=== PATIENT | male | born 1950 | race Caucasian/White ===

== ENCOUNTER 2018-06-17 10:06 | Day surgery (SDC) | payer MEDICARE ==
[~2018-06-17 10:06] MED LIST: Ak-Dilate OPHTHALMIC*** 1.065 ML, Cyclogyl 1% OPHTH SOL 5 ML 1.065 ML, GATIFLOXACIN 0.5... OP ONE; Lactated Ringers 1,000 ML IV ONE; Lactated Ringers 1,000 ML IV SCH; TETRACAINE 0.5% STERI-UNIT SOL OP ONE
[2018-06-17] MEDS ORDERED: Versed 2 MG/2 ML Injection IV ONE (10:07)
[2018-06-17] MEDS ORDERED: DIPRIVAN 200 MG/20 ML IV ONE (10:07)
[2018-06-17] MEDS ORDERED: BSS 500 ML, Fortaz/Tazicef 1 GM** 0.2 G IO ONE ×2 (12:00)
[2018-06-17] MEDS ORDERED: ACETAZOLAMIDE 250 MG TABLET PO ONE (12:00)
[2018-06-17] MEDS ORDERED: BETADINE 5% OPHTHALMIC 30 ML OP ONE (12:00)
[2018-06-17] MEDS ORDERED: Zofran 4 MG/2 ML VIAL IV PRN (12:00)
[2018-06-17] MEDS ORDERED: Epinephrine Preservative Free 1 MG/ML INTRAOP ONE (12:00)
[2018-06-17] MEDS ORDERED: LIDOCAINE HCL 1% AMPUL 5 ML IJ ONE (12:00)
[2018-06-17 12:31] VITALS: BP 127/86; PULSE 67; O2SAT 97
--- NOTE | 2018-06-17 14:41 | OP ---
DATE/TIME OF OPERATION: 06/17/2018 1119 TIME DICTATED: 1208 PREOPERATIVE DIAGNOSIS: Senile cataract of left eye. POSTOPERATIVE DIAGNOSIS: Senile cataract of left eye. SURGEON: Agusto Jackson MD FAMILY SERVICE CASEWORKER: None. OPERATION: Cataract extraction of left eye with an intraocular lens implant. STANDARD __X___ COMPLEX ANESTHESIA: MAC. ___X___ Monitored anesthesia care in combination with topical and intra-cameral anesthesia (because of the established specific risk of reflux, arrhythmias, or an anxiety attack associated with ocular manipulation as well as difficulty of the philosophy and religion instructor to manage such potentially catastrophic events while simultaneously attempting to complete the surgical procedure, it was deemed necessary for the patient's safety to have an anesthesiologist or a nurse auto apprentice mechanic present during the procedure whenever possible. The anesthesiologist or the nurse auto apprentice mechanic was utilized to monitor and regulate the intravenous sedation of the patient, so the patient was cooperative, relaxed, and comfortable). Topical anesthesia using Tetracaine eye drops together with intra cameral anesthesia using Lidocaine 1% MPF. The nurse was utilized to monitor the patient. ANESTHESIA PROVIDER: Alli Min CRNA. COMPLICATIONS: None. BLOOD LOSS: None. INDICATIONS: The patient is undergoing cataract surgery in the hopes of eliminating the visual complaints and difficulty. PROCEDURE: After arriving at the facility's outpatient surgery area, an IV was started; the patient was given 5 mg of p.o. Versed. (If an anesthesia provider was not monitoring the patient) The patient was then given topical anesthetic Tetracaine eye drops. A cotton pellet was soaked into a solution of a combination of Zymaxid 0.5%, Celio-Synephrine 2.5% and Ocufen (other drops might have been substituted referenced in the patient's record). The pellet was inserted by the RN into the lower conjunctival cul-de-sac with a sterile forceps and left for 20 minutes. The pellet was then removed by the RN with a sterile forceps before taking the patient to the operating room. The preoperative area nurse identified the patient and marked the correct eye to be operated on. I identified the correct eye to be operated on and marked it appropriately in the outpatient surgery area. The patient was then taken into the operating room. Tetracaine eye drops were installed again in the correct eye. The eyelids and the lashes and the lid margins were scrubbed with Betadine solution. One drop of the diluted Betadine solution was placed in the conjunctival cul-de-sac for 45 seconds and then was irrigated. A drop of Tetracaine Gel was placed in the conjunctival cul-de-sac. The patient's forehead was taped to secure it during the procedure. The patient was monitored. The patient was then draped in the usual way for this procedure. An eye speculum was used to separate the eyelids. The eye was then fixated and a temporal 2.5 mm incision was made in the clear cornea temporally at the limbus. Through the incision, 0.25 cc of 1% non-preserved lidocaine was injected into the anterior chamber for intracameral anesthesia. The anterior chamber was then filled with viscoelastic. The pupil was small. I felt that it would be safer to mechanically dilate the pupil. A Malyugin ring was used at this point which dilated the pupil. That was removed at the end of the procedure prior to aspiration of the viscoelastic from the anterior chamber and posterior to the intraocular lens implant. The cataract had a great amount of cortical changes. That rendered seeing the anterior capsule difficult for a safe performance of an anterior capsulotomy. I injected an air bubble into the anterior chamber. I then injected 1 ML of vision blue solution into the anterior chamber. The vision blue solution was irrigated from the anterior chamber after 30 seconds. The anterior capsule was stained which facilitated performing the anterior capsulotomy safely. After that was completed, a cystotome was introduced into the anterior chamber and a round anterior capsulotomy was performed. The capsule was removed by a forceps. Hydrodissection was next carried utilizing a 25-gauge cannula and balanced salt solution to delineate the cortical material from the capsule and the nucleus from the cortical material. The nucleus was rotated freely into the capsular bag with no difficulty. The phaco tip of the [facility] Phacoemulsifier was introduced into the anterior chamber and two grooves were made into the nucleus 90 degrees apart. Using two spatulas resulted into the nucleus being fractured into four quadrants. The phaco tip was then used to remove each quadrant of the nucleus. Viscoelastic was used during this process to protect the corneal endothelium. Once the entire nucleus was removed, the phaco tip then was removed and the irrigation tip was introduced into the eye and the cortex was removed. The posterior capsule was polished. It was noticed that there was a tear into the posterior capsule with few vitreous strands into the pupil plan. An anterior vitrectomy was performed. A 24.00 diopter, [id number], posterior chamber lens implant, was inspected and found to be grossly normal. The implant was inserted into the implant injector cartridge; Viscoelastic again was introduced into the anterior chamber, which filled the capsular bag. The implant injector's cartridge tip was placed at the limbal wound and the posterior chamber implant was released into the capsular bag and rotated appropriately. The implant was found to be into the capsular bag and it was centered. 0.2 ml of Tri-Moxi was introduced via 27 gauge cannula into the vitreous cavity through the ciliary processes. Viscoelastic was aspirated from the anterior chamber and posterior to the intraocular lens implant from the capsular bag using the irrigating tip. The anterior chamber was irrigated and filled with 5 cc antibiotic solution (500 cc of BSS plus 2 ml of Fortaz 100 mg/ml) ( if patient was not allergic to the medication). The lips of the corneal incision were hydrated using BSS solution. The anterior chamber was checked and found to be water tight. ___X__ One drop each of antibiotic, steroid and NSAID drops (refer to chart for drops used) were placed in the conjunctival cul-de-sac of the operated eye. Patient tolerated the procedure quite well and left the operating room in satisfactory condition. DISCHARGE SUMMARY: The patient was released in stable condition. The patient and those with the patient were given an instruction sheet as of how to care for the eye after surgery as well as counseling on any abnormal laboratory studies by the postoperative RN. The patient was also given an appointment card for follow-up in the office and is to call immediately for any difficulties including but not limited to pain in the eye, decreased vision, discharge from the eye, headache and or fever. DISCHARGE DIAGNOSIS: Pseudophakia of left eye.
== END 2018-06-17 12:43 | disposition home or self-care (01) ==
LOC: SDC 10:06
PROVIDERS: ATTEND Ophthalmology
DX: H25.9 Unspecified age-related cataract (principal)
CPT/HCPCS: 94250; C1780; J0171; J2250; J2704; A9270-GY

== ENCOUNTER 2023-06-12 10:48 | Observation (INO) | payer MEDICARE, OTHER ==
--- NOTE | 2023-06-12 10:51 | ERPHSYRPT ---
- History of Present Illness Time Seen by Provider: 06/12/23 10:51 Source: patient Exam Limitations: no limitations Physician History: This is a 73-year-old white [place] who was diagnosed with COVID 6 days ago and in the last few days his symptoms of shortness of breath and cough have been worsening. Patient also complains of a headache and body aches. His cough is dry and nonproductive. On arrival to the emergency department, his room air oxygen saturation level is 77%. He was immediately placed on a nonrebreather mask and respiratory therapy was immediately consulted and provided the patient with a nebulizer treatment. The combined therapy increased his oxygen saturation level to 96% and he was symptomatically improved per his report. Patient has no abdominal pain. He has not had any vomiting or diarrhea symptoms. He does have a history of COPD. He has never been diagnosed with coronary artery disease Timing/Duration: day(s), worse (Worsening symptoms over the last few days) Severity of Dyspnea-Max: moderate Severity of Dyspnea-Current: moderate Possible Cause: no prior episodes Modifying Factors: Improves With: albuterol nebulizer (Approved proved symptoms), coughing, oxygen, rest Associated Symptoms: cough, No chest pain/discomfort Allergies/Adverse Reactions: No Known Drug Allergies Allergy (Verified 06/12/23 11:02) Home Medications: Albuterol 2.5 mg/3 ml Neb [Proventil 2.5 mg/3 ml Neb] 1 neb IH BID 06/12/23 [History] Tamsulosin HCl 0.4 mg [Flomax 0.4 MG] 0.4 mg PO HS 06/12/23 [History] Travel Risk - International Travel Have you traveled outside of the country in past 3 weeks: No - Coronavirus Screening Are you exhibiting any of the following symptoms?: Yes Symptoms: Cough: New Onset, Shortness of Breath, Headaches/Body Aches/Fatigue Close contact with a COVID-19 positive Pt in past 14-21 Days: No - Review of Systems Constitutional: No Symptoms Eyes: No Symptoms Ears, Nose, & Throat: No Symptoms Respiratory: Cough, Dyspnea Cardiac: No Symptoms Abdominal/Gastrointestinal: No Symptoms Genitourinary Symptoms: No Symptoms Musculoskeletal: Arthralgias, Myalgias Neurological: No Symptoms Psychological: No Symptoms Endocrine: No Symptoms Hematologic/Lymphatic: No Symptoms Immunological/Allergic: No Symptoms All Other Systems: Reviewed and Negative - Past Medical History Pertinent Past Medical History: No Neurological History: No Pertinent History ENT History: Cataracts Cardiac History: No Pertinent History Respiratory History: No Pertinent History Endocrine Medical History: No Pertinent History Musculoskeletal History: No Pertinent History GI Medical History: No Pertinent History History: No Pertinent History Psycho-Social History: No Pertinent History Male Reproductive Disorders: No Pertinent History - Past Surgical History Past Surgical History: Yes Neuro Surgical History: No Pertinent History Cardiac: No Pertinent History Respiratory: No Pertinent History Gastrointestinal: Hernia Repair Genitourinary: No Pertinent History Musculoskeletal: No Pertinent History Male Surgical History: No Pertinent History - Social History Smoking Status: Never smoker Exposure to second hand smoke: No Drug Use: none - Nursing Vital Signs Nursing Vital Signs: Initial Vital Signs Temperature 98.5 F 06/12/23 11:06 Pulse Rate 80 06/12/23 11:06 Respiratory Rate 26 H 06/12/23 11:06 Blood Pressure 134/72 06/12/23 11:06 O2 Sat by Pulse Oximetry 77 L 06/12/23 11:06 Pain Scale Pain Intensity 8 - Physical Exam General Appearance: no apparent distress, alert, anxiety Eye Exam: PERRL/EOMI, eyes nml inspection Ears, Nose, Throat Exam: hearing grossly normal, normal ENT inspection, normal pharynx Neck Exam: normal inspection, non-tender, supple, full range of motion Respiratory Exam: normal breath sounds, lungs clear, respiratory distress, airway intact, No chest tenderness Cardiovascular/Chest Exam: normal heart sounds, regular rate/rhythm Abdominal/Gastrointestinal Exam: soft, normal bowel sounds, No tenderness Rectal Exam: not done Extremity Exam: non-tender, normal range of motion, normal inspection Neurologic Exam: alert, oriented x 3, cooperative, chemical blender II-XII nml as tested, normal mood/affect, nml cerebellar function, nml station & gait, sensation nml Skin Exam: normal color, warm, dry Lymphatic Exam: No adenopathy SpO2 Interpretation: hypoxic O2 Delivery: Room Air - Course Nursing assessment & vital signs reviewed: Yes EKG Interpreted by Me: RATE (80), Sinus Rhythm, NORMAL AXIS, NORMAL INTERVALS, NORMAL QRS, NORMAL ST-T, Other (No acute ischemic changes on today's twelve-lead EKG.) Ordered Tests: Active Orders 24 hr Category Date Time Status EKG-ER Only STAT Care 06/12/23 11:12 Active IV Insertion STAT Care 06/12/23 11:12 Active Pulse Oximetry (ED) STAT Care 06/12/23 11:12 Active CHEST 1 VIEW (PORTABLE) Stat Exams 06/12/23 11:12 Completed CHEST WITH CONTRAST [CT] Stat Exams 06/12/23 12:49 Completed BLOOD CULTURE Stat Lab 06/12/23 11:46 Received CBC W DIFF Stat Lab 06/12/23 11:38 Completed CMP Stat Lab 06/12/23 11:38 Completed D-DIMER QUANTITATIVE Stat Lab 06/12/23 11:38 Completed Lactic Acid Stat Lab 06/12/23 11:12 Completed Lactic Acid Stat Lab 06/12/23 13:41 Received NT PRO BNPII Stat Lab 06/12/23 12:21 Completed TROPONIN Q4H Lab 06/12/23 11:38 Completed TROPONIN Q4H Lab 06/12/23 15:15 Ordered TROPONIN Q4H Lab 06/12/23 19:15 Ordered Transfer Order Routine Transfer 06/12/23 Ordered Medication Summary Discontinued Medications Generic Name Dose Route Start Last Admin Trade Name Freq PRN Reason Stop Dose Admin Hydrocodone Bitart/Acetaminophen 10 ml 06/12/23 11:25 06/12/23 11:31 Hydrocodone/Acetaminophen 5 Ml Udcup PO 06/12/23 11:26 10 ml STAT STA Administration Hydrocodone Bitart/Acetaminophen Confirm 06/12/23 11:30 Hydrocodone/Acetaminophen 5 Ml Udcup Administered 06/12/23 11:31 Dose 10 ml .ROUTE .STK-MED ONE Methylprednisolone Sodium 0 mg 06/12/23 11:12 06/12/23 11:31 Succinate 125 mg/ Sterile IV 06/12/23 11:13 125 mg Water 2 ml STAT ONE Administration Sodium Chloride 1,000 mls @ 999 mls/hr 06/12/23 11:51 06/12/23 13:02 Sodium Chloride 0.9% 1000 Ml IV 06/12/23 12:51 Infused .Q1H1M STA Infusion Sodium Chloride Confirm 06/12/23 11:54 Sodium Chloride 0.9% 1000 Ml Administered 06/12/23 11:55 Dose 1,000 mls @ ud .ROUTE .STK-MED ONE Ceftriaxone Sodium/Dextrose 1 g in 50 mls @ 100 mls/hr 06/12/23 12:22 06/12/23 13:03 Rocephin 1 Gm-D5w 50 Ml Bag IV 06/12/23 12:51 Infused STAT STA Infusion Ceftriaxone Sodium/Dextrose Confirm 06/12/23 12:27 Rocephin 1 Gm-D5w 50 Ml Bag Administered 06/12/23 12:28 Dose 1 g in 50 mls @ ud IV .STK-MED ONE Methylprednisolone Sodium Succinate Confirm 06/12/23 11:24 Methylprednis Sod Succ 125 Mg/2 Ml Vial Administered 06/12/23 11:25 Dose 125 mg .ROUTE .STK-MED ONE Sterile Water Confirm 06/12/23 11:23 Water For Injection,Sterile 10 Ml Vial Administered 06/12/23 11:24 Dose 10 ml IJ .STK-MED ONE Lab/Rad Data: Laboratory Result Diagrams 06/12/23 11:38 06/12/23 11:38 Laboratory Results 06/12/23 06/12/23 06/12/23 Range/Units 12:21 11:38 11:38 WBC (4.0-10.5) x10^3/uL RBC (4.1-5.6) x10^6/uL Hgb (12.5-18.0) g/dL Hct (42-50) % MCV (78-100) fL MCH (26-32) pg MCHC (32-36) g/dL RDW (11.5-14.0) % Plt Count (150-450) x10^3/uL MPV (7.5-11.0) fL Gran % (36.0-66.0) % Immature Gran % (Auto) (0.00-0.4) % Nucleat RBC Rel Count (0.00-0.1) % Eos # (Auto) (0-0.5) x10^3/uL Immature Gran # (Auto) (0.00-0.03) x10^3u/L Absolute Lymphs (auto) (1.0-4.6) x10^3/uL Absolute Monos (auto) (0.0-1.3) x10^3/uL Absolute Nucleated RBC (0.00-0.01) x10^3u/L Lymphocytes % (24.0-44.0) % Monocytes % (0.0-12.0) % Eosinophils % (0.00-5.0) % Basophils % (0.0-0.4) % Absolute Granulocytes (1.4-6.9) x10^3/uL Basophils # (0-0.4) x10^3/uL D-Dimer 1.07 H* (0.0-0.50) mg/L Sodium (137-145) mmol/L Potassium (3.5-5.1) mmol/L Chloride (98-107) mmol/L Carbon Dioxide (22-30) mmol/L Anion Gap (5-15) MEQ/L BUN (9-20) mg/dL Creatinine (0.66-1.25) mg/dL Estimated GFR ML/MIN Glucose (74-106) mg/dL Lactic Acid (0.4-2.0) Calcium (8.4-10.2) mg/dL Total Bilirubin (0.2-1.3) mg/dL AST (17-59) U/L ALT (0-50) U/L Alkaline Phosphatase (38-126) U/L Troponin I < 0.012 (0.000-0.034) ng/mL NT-Pro-B Natriuret Pep 117 (<300) pg/mL Serum Total Protein (6.3-8.2) g/dL Albumin (3.5-5.0) g/dL Influenza Type A Ag (NEGATIVE) Influenza Type B Ag (NEGATIVE) RSV (PCR) (NEGATIVE) SARS-CoV-2 (PCR) (NEGATIVE) Slides for Path Review 06/12/23 06/12/23 06/12/23 Range/Units 11:38 11:38 11:35 WBC 4.7 (4.0-10.5) x10^3/uL RBC 4.88 (4.1-5.6) x10^6/uL Hgb 15.0 (12.5-18.0) g/dL Hct 45.4 (42-50) % MCV 93.0 (78-100) fL MCH 30.7 (26-32) pg MCHC 33.0 (32-36) g/dL RDW 12.6 (11.5-14.0) % Plt Count 184 (150-450) x10^3/uL MPV 10.5 (7.5-11.0) fL Gran % 85.5 H (36.0-66.0) % Immature Gran % (Auto) 0.4 (0.00-0.4) % Nucleat RBC Rel Count 0.0 (0.00-0.1) % Eos # (Auto) 0 (0-0.5) x10^3/uL Immature Gran # (Auto) 0.02 (0.00-0.03) x10^3u/L Absolute Lymphs (auto) 0.40 L (1.0-4.6) x10^3/uL Absolute Monos (auto) 0.26 (0.0-1.3) x10^3/uL Absolute Nucleated RBC 0.00 (0.00-0.01) x10^3u/L Lymphocytes % 8.4 L (24.0-44.0) % Monocytes % 5.5 (0.0-12.0) % Eosinophils % 0.0 (0.00-5.0) % Basophils % 0.2 (0.0-0.4) % Absolute Granulocytes 4.05 (1.4-6.9) x10^3/uL Basophils # 0.01 (0-0.4) x10^3/uL D-Dimer (0.0-0.50) mg/L Sodium 137 (137-145) mmol/L Potassium 4.3 (3.5-5.1) mmol/L Chloride 100 (98-107) mmol/L Carbon Dioxide 24 (22-30) mmol/L Anion Gap 16.5 H (5-15) MEQ/L BUN 19 (9-20) mg/dL Creatinine 0.88 (0.66-1.25) mg/dL Estimated GFR 91.4 ML/MIN Glucose 120 H (74-106) mg/dL Lactic Acid (0.4-2.0) Calcium 9.2 (8.4-10.2) mg/dL Total Bilirubin 0.90 (0.2-1.3) mg/dL AST 91 H (17-59) U/L ALT 33 (0-50) U/L Alkaline Phosphatase 102 (38-126) U/L Troponin I (0.000-0.034) ng/mL NT-Pro-B Natriuret Pep (<300) pg/mL Serum Total Protein 7.3 (6.3-8.2) g/dL Albumin 4.3 (3.5-5.0) g/dL Influenza Type A Ag NEGATIVE (NEGATIVE) Influenza Type B Ag NEGATIVE (NEGATIVE) RSV (PCR) NEGATIVE (NEGATIVE) SARS-CoV-2 (PCR) POSITIVE A (NEGATIVE) Slides for Path Review YES 06/12/23 Range/Units 11:12 WBC (4.0-10.5) x10^3/uL RBC (4.1-5.6) x10^6/uL Hgb (12.5-18.0) g/dL Hct (42-50) % MCV (78-100) fL MCH (26-32) pg MCHC (32-36) g/dL RDW (11.5-14.0) % Plt Count (150-450) x10^3/uL MPV (7.5-11.0) fL Gran % (36.0-66.0) % Immature Gran % (Auto) (0.00-0.4) % Nucleat RBC Rel Count (0.00-0.1) % Eos # (Auto) (0-0.5) x10^3/uL Immature Gran # (Auto) (0.00-0.03) x10^3u/L Absolute Lymphs (auto) (1.0-4.6) x10^3/uL Absolute Monos (auto) (0.0-1.3) x10^3/uL Absolute Nucleated RBC (0.00-0.01) x10^3u/L Lymphocytes % (24.0-44.0) % Monocytes % (0.0-12.0) % Eosinophils % (0.00-5.0) % Basophils % (0.0-0.4) % Absolute Granulocytes (1.4-6.9) x10^3/uL Basophils # (0-0.4) x10^3/uL D-Dimer (0.0-0.50) mg/L Sodium (137-145) mmol/L Potassium (3.5-5.1) mmol/L Chloride (98-107) mmol/L Carbon Dioxide (22-30) mmol/L Anion Gap (5-15) MEQ/L BUN (9-20) mg/dL Creatinine (0.66-1.25) mg/dL Estimated GFR ML/MIN Glucose (74-106) mg/dL Lactic Acid 2.8 H (0.4-2.0) Calcium (8.4-10.2) mg/dL Total Bilirubin (0.2-1.3) mg/dL AST (17-59) U/L ALT (0-50) U/L Alkaline Phosphatase (38-126) U/L Troponin I (0.000-0.034) ng/mL NT-Pro-B Natriuret Pep (<300) pg/mL Serum Total Protein (6.3-8.2) g/dL Albumin (3.5-5.0) g/dL Influenza Type A Ag (NEGATIVE) Influenza Type B Ag (NEGATIVE) RSV (PCR) (NEGATIVE) SARS-CoV-2 (PCR) (NEGATIVE) Slides for Path Review - Progress Progress: improved, re-examined Air Movement: good Progress Note: 06/12/23 11:34 This patient's medical issue is 1 of moderate to high complexity. Level complex in the work-up performed based on review of the patient's past medical history, review the patient's medication list, review the patient's drug allergy list, history present illness and physical findings on examination. The work-up in this patient includes placement of intravenous line, respiratory therapy consultation, supplemental oxygen treatment, nebulizer treatment, infusion of Solu-Medrol, oral hydrocodone elixir, CBC, CMP, BNP, D-dimer, troponin level, twelve-lead EKG and chest radiographic studies. We will also repeat the viral swabs to be sure there are no other viral illnesses present. 06/12/23 11:52 Chest x-ray was interpreted by the radiologist and I reviewed the impression. The impression says minimal bibasilar infiltrates versus atelectasis left side greater than right 06/12/23 14:21 I reviewed and interpreted the patient's laboratory results. Patient had an elevated D-dimer and is short of breath and therefore we obtained a CT of the chest with contrast. This study was interpreted by the radiologist and I reviewed the interpretation. The impression is no pulmonary embolus. There is bilateral patchy groundglass airspace disease consistent with COVID-19 infection. Patient was retested and patient is positive for COVID-19 infection. I communicated with Dr. Moncada who is our telehospitalist. I reviewed the patient history, the the patient's presenting complaint and the work-up performed as well as the response to the intervention we ordered. He agrees to place the patient in observation. Blood Culture(s) Obtained: Yes Antibiotics given: Yes Discussed with : Clinton Counseled pt/family regarding: lab results, diagnosis, rad results Medical Desision Making - Independent Historian Additional History obtained from: Web Retailer (The officer from the detention) - Discussion of managment Care discussed with:: hospitalist (Dr. Moncada) Reviewed:: Test results, Need for additional workup Agreed on:: place in obs Will see patient: in hospital - Social Determinants of Health Limited access to: transportation - Diagnostic Testing Diagnostic test were ordered, analyzed, and reviewed by me: Yes Radiological Interpretation: Reviewed by me, Teleradiologist Report - Risk of complications The pt has a high risk of morbidity or mortality based on: Decision regarding hospitilization or escalation of hosp level of care - Departure Departure Disposition: Observation Clinical Impression: Hypoxia, COVID-19 virus infection Condition: Fair Critical Care Time: Yes Critical Care Time(excluding separately billable procedures): Critical 30-74 mins (35 minutes) Referrals: CAITLYN LARSON [Primary Care Provider] - Follow up/PCP as directed
[2023-06-12] MEDS ORDERED: solu-MEDROL 125 MG, Sterile H2O 10 ml 2 ML IV ONE ×2 (11:12)
[2023-06-12] MEDS ORDERED: Sterile H2O 10 ml IJ ONE (11:23)
[2023-06-12] MEDS ORDERED: solu-MEDROL ONE (11:24)
[2023-06-12] MEDS ORDERED: HYDROCODONE-ACETAMIN 2.5-108/5 ML SOLUTION PO STA (11:25)
[2023-06-12] MEDS ORDERED: HYDROCODONE-ACETAMIN 2.5-108/5 ML SOLUTION ONE (11:30)
--- NOTE | 2023-06-12 11:38 | XRAY ---
Indication: Cough and short of breath. Positive Covid 19. Comparison: None Portable chest demonstrates minimal bibasilar infiltrates versus atelectasis, left greater than right. Remaining heart and upper lungs unremarkable with incidental hilar calcified granulomas. Bony thorax intact with osteopenia and mild degenerative changes.
[2023-06-12] MEDS ORDERED: Sodium Chloride 0.9% 1000 ML 1,000 ML IV STA (11:51)
[2023-06-12] MEDS ORDERED: Sodium Chloride 0.9% 1000 ML 1,000 ML ONE (11:54)
[2023-06-12 12:03] LABS: Absolute Neutrophil Ct (ANC) 4.05 x10^3/uL (1.4-6.9); BASOPHIL % 0.2 % (0.0-0.4); Basophil (Absolute #) 0.01 x10^3/uL (0-0.4); Eosinophil (Absolute #) 0 x10^3/uL (0-0.5); Hematocrit 45.4 % (42-50); IMMATURE GRAN # 0.02 x10^3u/L (0.00-0.03); IMMATURE GRAN % 0.4 % (0.00-0.4); Lymphocytes % 8.4 % (24.0-44.0); Mean Corpuscular Hemoglobin 30.7 pg (26-32); Mean Platelet Volume 10.5 fL (7.5-11.0); Monocyte (Absolute #) 0.26 x10^3/uL (0.0-1.3); Monocytes % 5.5 % (0.0-12.0); Neutrophil % 85.5 % (36.0-66.0); Platelet Count 184 x10^3/uL (150-450); Red Blood Count 4.88 x10^6/uL (4.1-5.6); Red Cell Distribution Width 12.6 % (11.5-14.0); White Blood Count 4.7 x10^3/uL (4.0-10.5)
[2023-06-12 12:10] LABS: ALBUMIN 4.3 g/dL (3.5-5.0); ANION GAP 16.5 MEQ/L (5-15); BILIRUBIN,TOTAL 0.9 mg/dL (0.2-1.3); Calcium 9.2 mg/dL (8.4-10.2); Creatinine 1 0.88 mg/dL (0.66-1.25); EST GLOMERULAR FILTRATION RATE 91.4 ML/MIN; Potassium 4.3 mmol/L (3.5-5.1); Total Protein 7.3 g/dL (6.3-8.2)
[2023-06-12] MEDS ORDERED: ROCEPHIN 1 Gm-D5w 50 ml Bag** 1 G/50 ML IVPB IV STA (12:22)
[2023-06-12] MEDS ORDERED: ROCEPHIN 1 Gm-D5w 50 ml Bag** 1 G/50 ML IVPB IV ONE (12:27)
[2023-06-12 12:36] LABS: INFLUENZA A NEGATIVE (NEGATIVE); INFLUENZA B NEGATIVE (NEGATIVE); RESPIRATORY SYNCTIAL VIRUS NEGATIVE (NEGATIVE)
[2023-06-12 12:39] LABS: SARS-CoV-2 Xpert Express POSITIVE (NEGATIVE)
--- NOTE | 2023-06-12 14:04 | XRAY ---
Indication: Short of breath. Elevated d-dimer. Multiple contiguous images obtained through the chest using 80 cc Isovue 370 contrast and PE protocol. Comparison: None Adequate opacification of the pulmonary arteries to include the lobar and segmental branches. No pulmonary embolus. Heart not enlarged. Aorta mildly arteriosclerotic without aneurysm/dissection. Small mediastinal and bilateral hilar calcified nodes. No pathologic mediastinal/hilar lymphadenopathy. Small hiatal hernia. Lungs demonstrates diffuse patchy groundglass airspace disease greatest in both lower lobes. No consolidation/effusion. Bony thorax intact with mild degenerative changes throughout the spine. Limited upper abdomen demonstrates mild diffuse fatty liver and tiny hepatic/splenic calcified granulomas. Impression: 1. Negative pulmonary embolus. 2. Diffuse bilateral patchy groundglass airspace disease. Rule out Covid 19 pneumonia. 3. Chronic findings including hiatal hernia, arteriosclerotic disease, fatty liver, chronic bony findings, and old granulomatous disease.
[2023-06-12 14:17] LABS: Slide Review 1 YES
--- NOTE | 2023-06-12 15:33 | PCM.HP ---
History of Present Illness - Chief Complaint Chief Complaint: COVID SOB Date: 06/12/23 History of Present Illness: is a 73 year old male with a pmhx of COPD and enlarged prostate who [facility] with complaints of shortness of b reath and a dry cough. Patient states that his symptoms began approximately 06/04/23 with flu-like symptoms of fever, body aches, and cough. He was diagnosed with COVID 6 days ago and states symptoms have gotten progressively worse over the past two days and became very short of breath today which prompted today's ED visit. Officer present during interview. On arrival to ED patient was tachypneic, afebrile, normotensive, with oxygen saturation level 77% on RA. Per ER report patient was placed on a nonrebreather mask and respiratory therapy provided the patient with a nebulizer treatment. The combined therapy increased his oxygen saturation level to 96% and he was symptomatically improved per his report. Per RN report on arrival to floor, saturations continue to drop with exertion on NC. Patient not in distress with rest during interview. CXR demonstrates minimal bibasilar infiltrates versus atelectasis,left greater than right. Remaining heart and upper lungs unremarkable with incidental hilar calcified granulomas. CT scan negative for PE, showing diffuse bilateral patchy groundglass airspace disease. Patient being admitted for COVID Pneumonia. pneumonia. EKG NS with no ST elevation/deviations/acute ischemic changes. Lab findings remarkable for DDimer 1.07, GAP 16.5, LA 2.8, AST 91. Trops WNL, BNP unremarkable. Covid positive. Patient given rocephin, IVF bolus, solumedrol. - Review of Systems Constitutional: Fever, Fatigue Eyes: No Symptoms Respiratory: Cough, Short Of Breath Cardiac: No Symptoms Abdominal/Gastrointestinal: Nausea, Vomiting Genitourinary Symptoms: Hesitancy Musculoskeletal: No Symptoms Skin: No Symptoms Neurological: No Symptoms Psychological: No Symptoms Endocrine: No Symptoms Hematologic/Lymphatic: No Symptoms Immunological/Allergic: No Symptoms Medications & Allergies Home Medications: Home Medication List Albuterol 2.5 mg/3 ml Neb [Proventil 2.5 mg/3 ml Neb] 1 neb IH BID 06/12/23 [History Confirmed 06/12/23] Tamsulosin HCl 0.4 mg [Flomax 0.4 MG] 0.4 mg PO HS 06/12/23 [History Confirmed 06/12/23] Allergies/Adverse Reactions: Allergies Allergy/AdvReac Type Severity Reaction Status Date / Time No Known Drug Allergies Allergy Verified 06/12/23 11:02 - Past Medical History Past Medical History: No Neurological History: No Pertinent History ENT History: Cataracts Cardiac History: No Pertinent History Respiratory History: No Pertinent History Endocrine Medical History: No Pertinent History Musculoskelatal History: No Pertinent History GI Medical History: No Pertinent History History: No Pertinent History Pyscho-Social History: No Pertinent History Male Reproductive Disorders: No Pertinent History - Past Surgical History Past Surgical History: Yes Neuro Surgical History: No Pertinent History Cardiac History: No Pertinent History Respiratory Surgery: No Pertinent History GI Surgical History: Hernia Repair Genitourinary Surgical Hx: No Pertinent History Musculskeletal Surgical Hx: No Pertinent History Male Surgical History: No Pertinent History - Social History Smoking Status: Never smoker Exposure to second hand smoke: No Alcohol: None Drug Use: none - Physical Exam Vital Signs: Vital Signs - 24 hr Temp Pulse Resp BP BP Pulse Ox 06/12/23 15:12 92 L 06/12/23 13:30 76 115/67 91 L 06/12/23 13:00 79 31 H 115/69 95 06/12/23 12:30 81 22 114/64 93 L 06/12/23 12:00 79 26 H 116/72 94 L 06/12/23 11:43 20 06/12/23 11:42 83 32 H 119/70 95 06/12/23 11:40 87 24 99 06/12/23 11:36 81 42 H 92 L 06/12/23 11:27 97 06/12/23 11:13 16 96 06/12/23 11:06 98.5 F 80 26 H 134/72 77 L General Appearance: no apparent distress Neurologic Exam: alert, oriented x 3, cooperative Eye Exam: PERRL/EOMI Ears, Nose, Throat Exam: normal ENT inspection Neck Exam: normal inspection Respiratory Exam: diminished breath sounds, crackles/rales Cardiovascular Exam: regular rate/rhythm, edema (BLE +1) Gastrointestinal/Abdomen Exam: soft, normal bowel sounds Rectal Exam: deferred Extremity Exam: swelling (BLE +1) Skin Exam: pale Results - Labs Lab/Micro Results: Lab Results-Last 24 Hours 11/15/23 11/15/23 11/15/23 Range/Units 11:12 11:35 11:38 WBC 4.7 (4.0-10.5) x10^3/uL RBC 4.88 (4.1-5.6) x10^6/uL Hgb 15.0 (12.5-18.0) g/dL Hct 45.4 (42-50) % MCV 93.0 (78-100) fL MCH 30.7 (26-32) pg MCHC 33.0 (32-36) g/dL RDW 12.6 (11.5-14.0) % Plt Count 184 (150-450) x10^3/uL MPV 10.5 (7.5-11.0) fL Gran % 85.5 H (36.0-66.0) % Immature Gran % (Auto) 0.4 (0.00-0.4) % Nucleat RBC Rel Count 0.0 (0.00-0.1) % Eos # (Auto) 0 (0-0.5) x10^3/uL Immature Gran # (Auto) 0.02 (0.00-0.03) x10^3u/L Absolute Lymphs (auto) 0.40 L (1.0-4.6) x10^3/uL Absolute Monos (auto) 0.26 (0.0-1.3) x10^3/uL Absolute Nucleated RBC 0.00 (0.00-0.01) x10^3u/L Lymphocytes % 8.4 L (24.0-44.0) % Monocytes % 5.5 (0.0-12.0) % Eosinophils % 0.0 (0.00-5.0) % Basophils % 0.2 (0.0-0.4) % Absolute Granulocytes 4.05 (1.4-6.9) x10^3/uL Basophils # 0.01 (0-0.4) x10^3/uL D-Dimer (0.0-0.50) mg/L Sodium (137-145) mmol/L Potassium (3.5-5.1) mmol/L Chloride (98-107) mmol/L Carbon Dioxide (22-30) mmol/L Anion Gap (5-15) MEQ/L BUN (9-20) mg/dL Creatinine (0.66-1.25) mg/dL Estimated GFR ML/MIN Glucose (74-106) mg/dL Lactic Acid 2.8 H (0.4-2.0) Calcium (8.4-10.2) mg/dL Total Bilirubin (0.2-1.3) mg/dL AST (17-59) U/L ALT (0-50) U/L Alkaline Phosphatase (38-126) U/L Troponin I (0.000-0.034) ng/mL NT-Pro-B Natriuret Pep (<300) pg/mL Serum Total Protein (6.3-8.2) g/dL Albumin (3.5-5.0) g/dL Influenza Type A Ag NEGATIVE (NEGATIVE) Influenza Type B Ag NEGATIVE (NEGATIVE) RSV (PCR) NEGATIVE (NEGATIVE) SARS-CoV-2 (PCR) POSITIVE A (NEGATIVE) Slides for Path Review YES 06/12/23 06/12/23 06/12/23 Range/Units 11:38 11:38 11:38 WBC (4.0-10.5) x10^3/uL RBC (4.1-5.6) x10^6/uL Hgb (12.5-18.0) g/dL Hct (42-50) % MCV (78-100) fL MCH (26-32) pg MCHC (32-36) g/dL RDW (11.5-14.0) % Plt Count (150-450) x10^3/uL MPV (7.5-11.0) fL Gran % (36.0-66.0) % Immature Gran % (Auto) (0.00-0.4) % Nucleat RBC Rel Count (0.00-0.1) % Eos # (Auto) (0-0.5) x10^3/uL Immature Gran # (Auto) (0.00-0.03) x10^3u/L Absolute Lymphs (auto) (1.0-4.6) x10^3/uL Absolute Monos (auto) (0.0-1.3) x10^3/uL Absolute Nucleated RBC (0.00-0.01) x10^3u/L Lymphocytes % (24.0-44.0) % Monocytes % (0.0-12.0) % Eosinophils % (0.00-5.0) % Basophils % (0.0-0.4) % Absolute Granulocytes (1.4-6.9) x10^3/uL Basophils # (0-0.4) x10^3/uL D-Dimer 1.07 H* (0.0-0.50) mg/L Sodium 137 (137-145) mmol/L Potassium 4.3 (3.5-5.1) mmol/L Chloride 100 (98-107) mmol/L Carbon Dioxide 24 (22-30) mmol/L Anion Gap 16.5 H (5-15) MEQ/L BUN 19 (9-20) mg/dL Creatinine 0.88 (0.66-1.25) mg/dL Estimated GFR 91.4 ML/MIN Glucose 120 H (74-106) mg/dL Lactic Acid (0.4-2.0) Calcium 9.2 (8.4-10.2) mg/dL Total Bilirubin 0.90 (0.2-1.3) mg/dL AST 91 H (17-59) U/L ALT 33 (0-50) U/L Alkaline Phosphatase 102 (38-126) U/L Troponin I < 0.012 (0.000-0.034) ng/mL NT-Pro-B Natriuret Pep (<300) pg/mL Serum Total Protein 7.3 (6.3-8.2) g/dL Albumin 4.3 (3.5-5.0) g/dL Influenza Type A Ag (NEGATIVE) Influenza Type B Ag (NEGATIVE) RSV (PCR) (NEGATIVE) SARS-CoV-2 (PCR) (NEGATIVE) Slides for Path Review 06/12/23 Range/Units 12:21 WBC (4.0-10.5) x10^3/uL RBC (4.1-5.6) x10^6/uL Hgb (12.5-18.0) g/dL Hct (42-50) % MCV (78-100) fL MCH (26-32) pg MCHC (32-36) g/dL RDW (11.5-14.0) % Plt Count (150-450) x10^3/uL MPV (7.5-11.0) fL Gran % (36.0-66.0) % Immature Gran % (Auto) (0.00-0.4) % Nucleat RBC Rel Count (0.00-0.1) % Eos # (Auto) (0-0.5) x10^3/uL Immature Gran # (Auto) (0.00-0.03) x10^3u/L Absolute Lymphs (auto) (1.0-4.6) x10^3/uL Absolute Monos (auto) (0.0-1.3) x10^3/uL Absolute Nucleated RBC (0.00-0.01) x10^3u/L Lymphocytes % (24.0-44.0) % Monocytes % (0.0-12.0) % Eosinophils % (0.00-5.0) % Basophils % (0.0-0.4) % Absolute Granulocytes (1.4-6.9) x10^3/uL Basophils # (0-0.4) x10^3/uL D-Dimer (0.0-0.50) mg/L Sodium (137-145) mmol/L Potassium (3.5-5.1) mmol/L Chloride (98-107) mmol/L Carbon Dioxide (22-30) mmol/L Anion Gap (5-15) MEQ/L BUN (9-20) mg/dL Creatinine (0.66-1.25) mg/dL Estimated GFR ML/MIN Glucose (74-106) mg/dL Lactic Acid (0.4-2.0) Calcium (8.4-10.2) mg/dL Total Bilirubin (0.2-1.3) mg/dL AST (17-59) U/L ALT (0-50) U/L Alkaline Phosphatase (38-126) U/L Troponin I (0.000-0.034) ng/mL NT-Pro-B Natriuret Pep 117 (<300) pg/mL Serum Total Protein (6.3-8.2) g/dL Albumin (3.5-5.0) g/dL Influenza Type A Ag (NEGATIVE) Influenza Type B Ag (NEGATIVE) RSV (PCR) (NEGATIVE) SARS-CoV-2 (PCR) (NEGATIVE) Slides for Path Review - Radiology Impressions Radiology Exams & Impressions: Radiology Procedures Category Date Time Status CHEST 1 VIEW (PORTABLE) Stat Exams 06/12/23 11:12 Completed CHEST WITH CONTRAST [CT] Stat Exams 06/12/23 12:49 Completed - Other Procedures and Tests Respiratory Therapy 06/12/23 15:11 Oxygen Nasal Cannula 3 lpm Assessment/Plan (1) Pneumonia Current Visit: Yes Status: Acute Assessment & Plan: -Supplemental oxygen as needed to maintain spo2>92% -Repeat LA -Sputum culture -CT reviewed demonstrating Diffuse bilateral patchy groundglass airspace disease. Rule out Covid 19 pneumonia. Negative for PE -Blood cultures obtained and pending -Ceftriaxone -Decadron 6mg daily x 10 days Code(s): J18.9 - PNEUMONIA, UNSPECIFIED ORGANISM (2) COVID-19 virus infection Current Visit: Yes Status: Acute Assessment & Plan: -decadron 6mg daily x 10 days -Out of window for paxlovid -supplement oxygen for goal of >92% Code(s): U07.1 - COVID-19 (3) Hypoxia Current Visit: Yes Status: Acute Assessment & Plan: -see pneumonia Code(s): R09.02 - HYPOXEMIA
[2023-06-12] MEDS ORDERED: Zofran 4 MG/2 ML VIAL IV PRN ×3 (15:49→16:52)
[2023-06-12] MEDS ORDERED: DUONEB 0.5-3 MG/3 ml Neb IH PRN ×2 (15:49→16:52)
[2023-06-12] MEDS ORDERED: TYLENOL 325 MG PO PRN ×3 (15:49→16:52)
[2023-06-12] MEDS ORDERED: Sodium Chloride 0.9% 1000 ML 1,000 ML IV SCH (16:33)
[2023-06-12] MEDS: ENOXAPARIN SODIUM SQ SCH (17:02)
[2023-06-12] MEDS: DECADRON 10MG INJ. IV SCH (17:02)
[2023-06-12] MEDS: Vibramycin 100 MG PO SCH (17:33)
[2023-06-12] MEDS: Flomax 0.4 MG PO SCH (22:13)
[2023-06-12] MEDS: Mucinex 600MG ER Tabs PO SCH (22:13)
[2023-06-13 05:03] LABS: Absolute Neutrophil Ct (ANC) 3.31 x10^3/uL (1.4-6.9); Basophil (Absolute #) 0 x10^3/uL (0-0.4); Eosinophil (Absolute #) 0 x10^3/uL (0-0.5); Hematocrit 42.6 % (42-50); Hemoglobin 14.8 g/dL (12.5-18.0); IMMATURE GRAN # 0.01 x10^3u/L (0.00-0.03); IMMATURE GRAN % 0.2 % (0.00-0.4); Lymphocyte (Absolute #) 0.49 x10^3/uL (1.0-4.6); Mean Cell Volume 90.8 fL (78-100); Mean Corpuscular Hemoglobin 31.6 pg (26-32); Mean Corpuscular Hgb Concent. 34.7 g/dL (32-36); Mean Platelet Volume 10.3 fL (7.5-11.0); Monocyte (Absolute #) 0.28 x10^3/uL (0.0-1.3); Monocytes % 6.8 % (0.0-12.0); Platelet Count 210 x10^3/uL (150-450); Red Blood Count 4.69 x10^6/uL (4.1-5.6); Red Cell Distribution Width 12.8 % (11.5-14.0); White Blood Count 4.1 x10^3/uL (4.0-10.5)
[2023-06-13 05:04] LABS: ALBUMIN 3.8 g/dL (3.5-5.0); ANION GAP 13.9 MEQ/L (5-15); BILIRUBIN,TOTAL 0.7 mg/dL (0.2-1.3); Calcium 9.1 mg/dL (8.4-10.2); Creatinine 1 0.7 mg/dL (0.66-1.25); EST GLOMERULAR FILTRATION RATE 97.9 ML/MIN; Potassium 3.9 mmol/L (3.5-5.1); Total Protein 7.2 g/dL (6.3-8.2)
[2023-06-13 05:56] LABS: Slide Review 1 YES
[2023-06-13] MEDS: Vibramycin 100 MG PO SCH ×2 (08:32→16:06)
[2023-06-13] MEDS: ROCEPHIN 1 Gm-D5w 50 ml Bag** 1 G/50 ML IVPB IV SCH (09:54)
[2023-06-13] MEDS: ENOXAPARIN SODIUM SQ SCH (09:54)
[2023-06-13] MEDS: DECADRON 10MG INJ. IV SCH (09:54)
[2023-06-13] MEDS: Mucinex 600MG ER Tabs PO SCH ×2 (09:54→21:41)
[2023-06-13] MEDS ORDERED: ROCEPHIN 1 Gm-D5w 50 ml Bag** 1 G/50 ML IVPB IV SCH (10:00)
[2023-06-13] MEDS ORDERED: ENOXAPARIN SODIUM SQ SCH (10:00)
[2023-06-13] MEDS ORDERED: Decadron 4 MG INJ IV SCH (10:00)
--- NOTE | 2023-06-13 12:47 | PCM.NOTE ---
Date and Time: 06/13/23 1241 Subjective Assessment: HPI: is a 73 year old male with a pmhx of COPD and enlarged prostate [facility] with complaints of shortness of breath and a dry cough. Patient states that his symptoms began approximately 06/04/23 with flu-like symptoms of fever, body aches, and cough. He was diagnosed with COVID 6 days ago and states symptoms have gotten progressively worse over the past two days and became very short of breath today which prompted today's ED visit. Officer present during interview. On arrival to ED patient was tachypneic, afebrile, normotensive, with oxygen saturation level 77% on RA. Per ER report patient was placed on a nonrebreather mask and respiratory therapy provided the patient with a nebulizer treatment. The combined therapy increased his oxygen saturation level to 96% and he was symptomatically improved per his report. Per RN report on arrival to floor, saturations continue to drop with exertion on NC. Patient not in distress with rest during interview. CXR demonstrates minimal bibasilar infiltrates versus atelectasis,left greater than right. Remaining heart and upper lungs unremarkable with incidental hilar calcified granulomas. CT scan negative for PE, showing diffuse bilateral patchy groundglass airspace disease. Patient being admitted for COVID Pneumonia. pneumonia. EKG NS with no ST elevation/deviations/acute ischemic changes. Lab findings remarkable for DDimer 1.07, GAP 16.5, LA 2.8, AST 91. Trops WNL, BNP unremarkable. Covid positive. Patient given rocephin, IVF bolus, solumedrol. 06/13/23: Met with patient bedside. Endorses improvement of shortness of breath. State he feels like his cough is more productive today. He is still requiring 5L of oxygen at this time. He does have episodes of oxygen desaturation with exertion even with oxygen. Lab findings unremarkable. Blood cultures are pending. Plan to continue current treatment regimen with rocephin/doxycycline/decadron for now. Denies fever, cp, abdominal pain, YORK, dizziness, N/V/D. - Review of Systems Constitutional: No Symptoms Eyes: No Symptoms Ears, Nose, & Throat: No Symptoms Respiratory: Cough, Short Of Breath Cardiac: No Symptoms Abdominal/Gastrointestinal: No Symptoms Genitourinary Symptoms: No Symptoms Musculoskeletal: No Symptoms Skin: No Symptoms Neurological: No Symptoms Psychological: No Symptoms Endocrine: No Symptoms Objective Exam General Appearance: no apparent distress Neurologic Exam: alert, oriented x 3, cooperative Skin Exam: pale Eye Exam: PERRL Ears, Nose, Throat Exam: dry mucous membranes Neck Exam: normal inspection Respiratory Exam: diminished breath sounds, crackles/rales Cardiovascular Exam: regular rate/rhythm, normal heart sounds Gastrointestinal/Abdomen Exam: soft, normal bowel sounds Extremity Exam: normal inspection Back Exam: normal inspection OBJECTIVE DATA Vital Signs: Vital Signs - 24 hr Temp Pulse Resp BP BP Pulse Ox 06/13/23 07:43 97.2 F 67 13 120/83 95 06/13/23 07:00 71 22 90 L 06/13/23 04:00 64 100 06/13/23 01:30 60 7 L 100 06/13/23 01:20 67 10 L 98 06/13/23 01:10 66 30 H 92 L 06/13/23 01:00 64 26 H 97 06/13/23 00:50 62 24 96 06/13/23 00:40 68 8 L 97 06/13/23 00:30 72 26 H 99 06/13/23 00:20 70 27 H 100 06/13/23 00:10 78 25 H 06/13/23 00:00 97.9 F 73 23 136/79 100 06/12/23 23:50 71 30 H 06/12/23 23:40 72 24 06/12/23 23:30 71 24 100 06/12/23 23:20 71 31 H 100 06/12/23 23:10 74 21 99 06/12/23 23:00 74 27 H 95 06/12/23 22:50 83 46 H 06/12/23 22:40 75 27 H 93 L 06/12/23 22:30 73 33 H 91 L 06/12/23 22:20 74 31 H 100 06/12/23 22:10 72 30 H 100 06/12/23 22:00 72 29 H 100 06/12/23 21:50 71 30 H 100 06/12/23 21:40 72 29 H 100 06/12/23 21:30 71 24 90 L 06/12/23 21:20 70 10 L 100 06/12/23 21:10 73 27 H 06/12/23 21:00 71 33 H 92 L 06/12/23 20:50 69 32 H 92 L 06/12/23 20:40 70 34 H 91 L 06/12/23 20:30 70 14 88 L 06/12/23 20:23 74 22 90 L 06/12/23 20:20 71 36 H 87 L 06/12/23 20:10 74 32 H 86 L 06/12/23 20:00 98.1 F 75 24 125/70 85 L 06/12/23 19:50 81 25 H 83 L 06/12/23 19:40 64 16 100 06/12/23 19:30 66 29 H 100 06/12/23 19:20 67 27 H 100 06/12/23 19:10 68 29 H 100 06/12/23 19:00 68 26 H 100 06/12/23 18:50 65 25 H 100 06/12/23 18:40 63 28 H 100 06/12/23 18:30 62 23 100 06/12/23 18:20 64 25 H 100 06/12/23 18:10 62 29 H 100 06/12/23 18:00 67 29 H 100 06/12/23 17:50 69 33 H 100 06/12/23 17:40 78 32 H 99 06/12/23 17:30 76 26 H 90 L 06/12/23 17:20 34 H 95 06/12/23 17:00 68 17 100 06/12/23 16:53 66 28 H 100 06/12/23 16:47 69 16 94 L 06/12/23 16:33 99 06/12/23 16:00 97.9 F 75 24 139/81 99 06/12/23 15:52 97.9 F 75 24 139/81 99 06/12/23 15:12 92 L 06/12/23 13:30 76 115/67 91 L 06/12/23 13:00 79 31 H 115/69 95 Pain Assessment - Last Documented Pain Intensity 0 Pain Scale Used 0-10 Pain Scale Intake and Output: Intake & Output 06/11/23 06/12/23 06/13/23 06/14/23 11:59 11:59 11:59 11:59 Intake Total 1160 Balance 1160 Weight 87.9 kg Lab Results: Lab Results-Last 24 Hours 11/15/23 11/15/23 11/15/23 Range/Units 11:38 13:41 15:39 WBC (4.0-10.5) x10^3/uL RBC (4.1-5.6) x10^6/uL Hgb (12.5-18.0) g/dL Hct (42-50) % MCV (78-100) fL MCH (26-32) pg MCHC (32-36) g/dL RDW (11.5-14.0) % Plt Count (150-450) x10^3/uL MPV (7.5-11.0) fL Gran % (36.0-66.0) % Immature Gran % (Auto) (0.00-0.4) % Nucleat RBC Rel Count (0.00-0.1) % Eos # (Auto) (0-0.5) x10^3/uL Immature Gran # (Auto) (0.00-0.03) x10^3u/L Absolute Lymphs (auto) (1.0-4.6) x10^3/uL Absolute Monos (auto) (0.0-1.3) x10^3/uL Absolute Nucleated RBC (0.00-0.01) x10^3u/L Lymphocytes % (24.0-44.0) % Monocytes % (0.0-12.0) % Eosinophils % (0.00-5.0) % Basophils % (0.0-0.4) % Absolute Granulocytes (1.4-6.9) x10^3/uL Basophils # (0-0.4) x10^3/uL Sodium (137-145) mmol/L Potassium (3.5-5.1) mmol/L Chloride (98-107) mmol/L Carbon Dioxide (22-30) mmol/L Anion Gap (5-15) MEQ/L BUN (9-20) mg/dL Creatinine (0.66-1.25) mg/dL Estimated GFR ML/MIN Glucose (74-106) mg/dL Lactic Acid 1.2 (0.4-2.0) Calcium (8.4-10.2) mg/dL Total Bilirubin (0.2-1.3) mg/dL AST (17-59) U/L ALT (0-50) U/L Alkaline Phosphatase (38-126) U/L Troponin I < 0.012 (0.000-0.034) ng/mL Serum Total Protein (6.3-8.2) g/dL Albumin (3.5-5.0) g/dL Slides for Path Review YES 06/12/23 06/13/23 06/13/23 Range/Units 19:08 04:45 04:45 WBC 4.1 (4.0-10.5) x10^3/uL RBC 4.69 (4.1-5.6) x10^6/uL Hgb 14.8 (12.5-18.0) g/dL Hct 42.6 (42-50) % MCV 90.8 (78-100) fL MCH 31.6 (26-32) pg MCHC 34.7 (32-36) g/dL RDW 12.8 (11.5-14.0) % Plt Count 210 (150-450) x10^3/uL MPV 10.3 (7.5-11.0) fL Gran % 81.0 H (36.0-66.0) % Immature Gran % (Auto) 0.2 (0.00-0.4) % Nucleat RBC Rel Count 0.0 (0.00-0.1) % Eos # (Auto) 0 (0-0.5) x10^3/uL Immature Gran # (Auto) 0.01 (0.00-0.03) x10^3u/L Absolute Lymphs (auto) 0.49 L (1.0-4.6) x10^3/uL Absolute Monos (auto) 0.28 (0.0-1.3) x10^3/uL Absolute Nucleated RBC 0.00 (0.00-0.01) x10^3u/L Lymphocytes % 12.0 L (24.0-44.0) % Monocytes % 6.8 (0.0-12.0) % Eosinophils % 0.0 (0.00-5.0) % Basophils % 0.0 (0.0-0.4) % Absolute Granulocytes 3.31 (1.4-6.9) x10^3/uL Basophils # 0 (0-0.4) x10^3/uL Sodium 136 L (137-145) mmol/L Potassium 3.9 (3.5-5.1) mmol/L Chloride 104 (98-107) mmol/L Carbon Dioxide 22 (22-30) mmol/L Anion Gap 13.9 (5-15) MEQ/L BUN 21 H (9-20) mg/dL Creatinine 0.70 (0.66-1.25) mg/dL Estimated GFR 97.9 ML/MIN Glucose 155 H (74-106) mg/dL Lactic Acid (0.4-2.0) Calcium 9.1 (8.4-10.2) mg/dL Total Bilirubin 0.70 (0.2-1.3) mg/dL AST 83 H (17-59) U/L ALT 34 (0-50) U/L Alkaline Phosphatase 90 (38-126) U/L Troponin I < 0.012 (0.000-0.034) ng/mL Serum Total Protein 7.2 (6.3-8.2) g/dL Albumin 3.8 (3.5-5.0) g/dL Slides for Path Review YES 06/13/23 Range/Units 05:30 WBC (4.0-10.5) x10^3/uL RBC (4.1-5.6) x10^6/uL Hgb (12.5-18.0) g/dL Hct (42-50) % MCV (78-100) fL MCH (26-32) pg MCHC (32-36) g/dL RDW (11.5-14.0) % Plt Count (150-450) x10^3/uL MPV (7.5-11.0) fL Gran % (36.0-66.0) % Immature Gran % (Auto) (0.00-0.4) % Nucleat RBC Rel Count (0.00-0.1) % Eos # (Auto) (0-0.5) x10^3/uL Immature Gran # (Auto) (0.00-0.03) x10^3u/L Absolute Lymphs (auto) (1.0-4.6) x10^3/uL Absolute Monos (auto) (0.0-1.3) x10^3/uL Absolute Nucleated RBC (0.00-0.01) x10^3u/L Lymphocytes % (24.0-44.0) % Monocytes % (0.0-12.0) % Eosinophils % (0.00-5.0) % Basophils % (0.0-0.4) % Absolute Granulocytes (1.4-6.9) x10^3/uL Basophils # (0-0.4) x10^3/uL Sodium (137-145) mmol/L Potassium (3.5-5.1) mmol/L Chloride (98-107) mmol/L Carbon Dioxide (22-30) mmol/L Anion Gap (5-15) MEQ/L BUN (9-20) mg/dL Creatinine (0.66-1.25) mg/dL Estimated GFR ML/MIN Glucose (74-106) mg/dL Lactic Acid 1.8 (0.4-2.0) Calcium (8.4-10.2) mg/dL Total Bilirubin (0.2-1.3) mg/dL AST (17-59) U/L ALT (0-50) U/L Alkaline Phosphatase (38-126) U/L Troponin I (0.000-0.034) ng/mL Serum Total Protein (6.3-8.2) g/dL Albumin (3.5-5.0) g/dL Slides for Path Review Radiology Exams: Radiology Procedures Category Date Time Status CHEST 1 VIEW (PORTABLE) Stat Exams 06/12/23 11:12 Completed CHEST WITH CONTRAST [CT] Stat Exams 06/12/23 12:49 Completed Multi-Disciplinary Progress Notes: Multi-Disciplinary Progress Notes 06/13/23 09:51 Case Management Note by Gabriela Johnson PATIENT IN CUSTODY OF [facility]. S/W DANIELA AT THE [facility]- SHE REPORTS SHE THINKS THAT IT WOULD NEED TO BE SET UP LIKE ANY OTHER DC. THEY WILL CALL [facility] FOR DELIVERY OF CONCENTRATOR AFTER HE ARRIVES BACK AT THE [facility]. SHE IS GOING TO CHECK ON THIS AND GET BACK TO THIS RIGHT OF WAY APPRAISER Initialized on 06/13/23 09:51 - END OF NOTE 06/13/23 07:19 Respiratory Note by Becky Sanchez PT'S O2 SAT DROPPED DOWN INTO THE 80'S WHILE HAVING A COUGHING FIT. PT'S SAT DID RECOVER BACK TO 90% ONCE HE STOPPED COUGHING. PT DENIES SOB AT THIS TIME. PT REMAINS ON 5LPM VIA NASAL CANNULA. Initialized on 06/13/23 07:19 - END OF NOTE 06/12/23 14:10 Respiratory Note by Eva Piña pt spo2 on 2L down to 89-90%. pt placed back up to 3L and pt spo2 92% Initialized on 06/12/23 14:10 - END OF NOTE 06/12/23 13:40 Respiratory Note by Eva Piña rt called to evaluate pt to wean o2. pt placed on 4L o2 and spo2 94%. pt dropped down to 3L and spo2 remained 93%. pt placed on 2L and spo2 92%. rt will check back with pt after his cat scan. Initialized on 06/12/23 13:40 - END OF NOTE Assessment/Plan (1) Pneumonia Current Visit: Yes Status: Acute Assessment & Plan: -Supplemental oxygen as needed to maintain spo2>92% -Repeat LA -Sputum culture -CT reviewed demonstrating Diffuse bilateral patchy groundglass airspace disease. Rule out Covid 19 pneumonia. Negative for PE -Blood cultures obtained and pending -Ceftriaxone -Decadron 6mg daily x 10 days 06/13: -Bcult pending -oxygen at 5L NC with spo2 @ 95% -Continue doxy/ceftriaxone/decadron/RT txt nebs/inh Code(s): J18.9 - PNEUMONIA, UNSPECIFIED ORGANISM (2) COVID-19 virus infection Current Visit: Yes Status: Acute Assessment & Plan: -decadron 6mg daily x 10 days -Out of window for paxlovid -supplement oxygen for goal of >92% Code(s): U07.1 - COVID-19 (3) Hypoxia Current Visit: Yes Status: Acute Assessment & Plan: -see pneumonia #BPH -continue flomax Code(s): J18.9 - PNEUMONIA, UNSPECIFIED ORGANISM (2) COVID-19 virus infection Current Visit: Yes Status: Acute Code(s): U07.1 - COVID-19 (3) Hypoxia Current Visit: Yes Status: Acute Code(s): R09.02 - HYPOXEMIA (4) BPH (benign prostatic hyperplasia) Current Visit: Yes Status: Acute Code(s): N40.0 - BENIGN PROSTATIC HYPERPLASIA WITHOUT LOWER URINRY TRACT SYMP
[2023-06-13] MEDS: Flomax 0.4 MG PO SCH (21:42)
[2023-06-14] MEDS ORDERED: BENADRYL 50 MG/ML IV ONE (00:14)
[2023-06-14 04:33] LABS: Absolute Neutrophil Ct (ANC) 7.85 x10^3/uL (1.4-6.9); BASOPHIL % 0.1 % (0.0-0.4); Basophil (Absolute #) 0.01 x10^3/uL (0-0.4); Eosinophil (Absolute #) 0 x10^3/uL (0-0.5); Hematocrit 38.9 % (42-50); Hemoglobin 13.2 g/dL (12.5-18.0); IMMATURE GRAN # 0.05 x10^3u/L (0.00-0.03); IMMATURE GRAN % 0.5 % (0.00-0.4); Lymphocyte (Absolute #) 0.54 x10^3/uL (1.0-4.6); Lymphocytes % 5.9 % (24.0-44.0); Mean Cell Volume 89.8 fL (78-100); Mean Corpuscular Hemoglobin 30.5 pg (26-32); Mean Corpuscular Hgb Concent. 33.9 g/dL (32-36); Mean Platelet Volume 10.3 fL (7.5-11.0); Monocyte (Absolute #) 0.73 x10^3/uL (0.0-1.3); Neutrophil % 85.5 % (36.0-66.0); Platelet Count 232 x10^3/uL (150-450); Red Blood Count 4.33 x10^6/uL (4.1-5.6); Red Cell Distribution Width 12.2 % (11.5-14.0); White Blood Count 9.2 x10^3/uL (4.0-10.5)
[2023-06-14 04:56] LABS: ALBUMIN 3.7 g/dL (3.5-5.0); ANION GAP 15.1 MEQ/L (5-15); BILIRUBIN,TOTAL 0.7 mg/dL (0.2-1.3); Calcium 8.9 mg/dL (8.4-10.2); Creatinine 1 0.84 mg/dL (0.66-1.25); EST GLOMERULAR FILTRATION RATE 92.7 ML/MIN; Potassium 3.5 mmol/L (3.5-5.1); Total Protein 6.8 g/dL (6.3-8.2)
[2023-06-14 05:05] LABS: Slide Review 1 YES
[2023-06-14] MEDS: Vibramycin 100 MG PO SCH (08:28)
[2023-06-14] MEDS: ROCEPHIN 1 Gm-D5w 50 ml Bag** 1 G/50 ML IVPB IV SCH (09:59)
[2023-06-14] MEDS: ENOXAPARIN SODIUM SQ SCH (09:59)
[2023-06-14] MEDS: DECADRON 10MG INJ. IV SCH (09:59)
[2023-06-14] MEDS: Mucinex 600MG ER Tabs PO SCH (10:00)
[2023-06-14] MEDS ORDERED: ENOXAPARIN SODIUM SQ SCH ×2 (10:30→22:00)
[2023-06-14] MEDS ORDERED: REMDESIVIR 200 MG in Sodium Chloride 0.9% 250 ML 250 ML IV ONE (10:30)
--- NOTE | 2023-06-14 10:36 | XRAY ---
Indication: Short of breath. Comparison: June 12, 2023 Portable chest grossly unchanged again demonstrating CT proven bilateral patchy groundglass airspace disease without consolidation/large effusion. Heart not enlarged with stable hilar calcified nodes. No new cardiopulmonary abnormalities.
[2023-06-14] MEDS ORDERED: ENOXAPARIN SODIUM SQ ONE (10:45)
--- NOTE | 2023-06-14 10:53 | PCM.DS ---
Discharge Summary Date of Admission: 06/12/23 15:05 Date of Discharge: 06/14/2023 Admitting Physician: ISRAEL GERMAN MD Consults: Consults on Case 06/14/23 09:07 Consult Pulmonology ROUTINE Primary Care Provider: CAITLYN LARSON Allergies Allergies No Known Drug Allergies Allergy (Verified 06/12/23 11:02) Hospital Summary - Hospital Course Hospital Course: HPI: is a 73 year old male with a pmhx of COPD and enlarged prostate who presented to ED 06/12/23 from care home where he resides with complaints of shortness of breath and a dry cough. Patient states that his symptoms began approximately 06/04/23 with flu-like symptoms of fever, body aches, and cough. He was diagnosed with COVID prior to admission with progressively worsening symptoms On arrival to ED patient was tachypneic, afebrile, normotensive, with oxygen saturation level 77% on RA. Per ER report patient was placed on a nonrebreather mask and respiratory therapy provided the patient with a nebulizer treatment. The combined therapy increased his oxygen saturation level to 96% and he was symptomatically improved per his report. Per RN report on arrival to floor, saturations continue to drop with exertion on NC. CXR demonstrates minimal bibasilar infiltrates versus atelectasis,left greater than right. Remaining heart and upper lungs unremarkable with incidental hilar calcified granulomas. CT scan negative for PE, showing diffuse bilateral patchy groundglass airspace disease. Patient being admitted for COVID Pneumonia. EKG NS with no ST elevation/deviations/acute ischemic changes. Lab findings remarkable for DDimer 1.07, GAP 16.5, LA 2.8, AST 91. Trops WNL, BNP unremarkable. Covid positive. Patient given rocephin, IVF bolus, solumedrol, remdesivir. 06/14/23 patient's oxygen demands increasing dropping into low 70's with any exertion. Dr. Cruz consulted [facility] for transfer to a higher level of specialty care. Patient has been accepted to [facility]. Latest Assessment & Plan -Supplemental oxygen as needed to maintain spo2>92% -Repeat LA -Sputum culture -CT reviewed demonstrating Diffuse bilateral patchy groundglass airspace disease. Rule out Covid 19 pneumonia. Negative for PE -Blood cultures obtained and pending -Ceftriaxone -Decadron 6mg daily x 10 days 06/13: -Bcult pending -oxygen at 5L NC with spo2 @ 95% -Continue doxy/ceftriaxone/decadron/RT txt nebs/inh Code(s): J18.9 - PNEUMONIA, UNSPECIFIED ORGANISM (2) COVID-19 virus infection Current Visit: Yes Status: Acute Assessment & Plan: -decadron 6mg daily x 10 days -Out of window for paxlovid -supplement oxygen for goal of >92% Code(s): U07.1 - COVID-19 (3) Hypoxia Current Visit: Yes Status: Acute Assessment & Plan: -see pneumonia #BPH -continue flomax I spent 35 minutes [id number] with the patient on the day of discharge performing discharge exam, discussing hospital stay and discharge instructions with patient and caregivers, preparation of discharge records, prescriptions & referral forms and addressing any questions/concerns the patient had as documented above. - Vitals & Intake/Output Vital Signs: Vital Signs Temperature 96.8 F 06/14/23 08:00 Pulse Rate 63 06/14/23 10:00 Respiratory Rate 34 H 06/14/23 10:00 Blood Pressure 116/69 06/14/23 08:00 O2 Sat by Pulse Oximetry 96 06/14/23 10:00 Intake & Output: Intake & Output 06/11/23 06/12/23 06/13/23 06/14/23 11:59 11:59 11:59 11:59 Intake Total 1160 880 Output Total 0 Balance 1160 880 Weight 87.9 kg - Lab Result Diagrams: 06/14/23 04:00 06/14/23 04:30 Lab Results-Last 24 Hrs: Lab Results-Last 24 Hours 06/14/23 06/14/23 Range/Units 04:00 04:30 WBC 9.2 (4.0-10.5) x10^3/uL RBC 4.33 (4.1-5.6) x10^6/uL Hgb 13.2 (12.5-18.0) g/dL Hct 38.9 L (42-50) % MCV 89.8 (78-100) fL MCH 30.5 (26-32) pg MCHC 33.9 (32-36) g/dL RDW 12.2 (11.5-14.0) % Plt Count 232 (150-450) x10^3/uL MPV 10.3 (7.5-11.0) fL Gran % 85.5 H (36.0-66.0) % Immature Gran % (Auto) 0.5 H (0.00-0.4) % Nucleat RBC Rel Count 0.0 (0.00-0.1) % Eos # (Auto) 0 (0-0.5) x10^3/uL Immature Gran # (Auto) 0.05 H (0.00-0.03) x10^3u/L Absolute Lymphs (auto) 0.54 L (1.0-4.6) x10^3/uL Absolute Monos (auto) 0.73 (0.0-1.3) x10^3/uL Absolute Nucleated RBC 0.00 (0.00-0.01) x10^3u/L Lymphocytes % 5.9 L (24.0-44.0) % Monocytes % 8.0 (0.0-12.0) % Eosinophils % 0.0 (0.00-5.0) % Basophils % 0.1 (0.0-0.4) % Absolute Granulocytes 7.85 H (1.4-6.9) x10^3/uL Basophils # 0.01 (0-0.4) x10^3/uL Sodium 134 L (137-145) mmol/L Potassium 3.5 (3.5-5.1) mmol/L Chloride 102 (98-107) mmol/L Carbon Dioxide 21 L (22-30) mmol/L Anion Gap 15.1 H (5-15) MEQ/L BUN 35 H (9-20) mg/dL Creatinine 0.84 (0.66-1.25) mg/dL Estimated GFR 92.7 ML/MIN Glucose 150 H (74-106) mg/dL Calcium 8.9 (8.4-10.2) mg/dL Total Bilirubin 0.70 (0.2-1.3) mg/dL AST 83 H (17-59) U/L ALT 39 (0-50) U/L Alkaline Phosphatase 84 (38-126) U/L Serum Total Protein 6.8 (6.3-8.2) g/dL Albumin 3.7 (3.5-5.0) g/dL Slides for Path Review YES Micro Results-Entire Visit: Microbiology 06/12/23 11:46 Blood Culture - Preliminary Blood 06/12/23 11:38 Blood Culture - Preliminary Blood - Radiology Exams Ordered Rad Exams-Entire Visit: Radiology Procedures Category Date Time Status CHEST 1 VIEW (PORTABLE) Stat Exams 06/12/23 11:12 Completed CHEST 1 VIEW (PORTABLE) Stat Exams 06/14/23 09:38 Completed CHEST WITH CONTRAST [CT] Stat Exams 06/12/23 12:49 Completed - Procedures and Test Procedures and Tests throughout Hospitalization: Therapy Orders & Screens 06/12/23 15:11 Oxygen Nasal Cannula 3 lpm Comment: 06/12/23 16:33 Respiratory Therapy Consult ONCE Comment: Reason For Exam: 06/12/23 16:46 Oxygen Nasal Cannula 3 lpm Comment: Diagnosis: COVID SOB 06/12/23 16:52 Respiratory Therapy Consult ONCE Comment: Reason For Exam: Diagnosis: COVID SOB 06/12/23 17:00 Respiratory Therapy Assessment DAILY Comment: Diagnosis: COVID SOB Discharge Exam General Appearance: mild distress Neurologic Exam: alert, oriented x 3, cooperative Eye Exam: PERRL Ears, Nose, Throat Exam: normal ENT inspection Neck Exam: normal inspection Respiratory Exam: diminished breath sounds, crackles/rales Cardiovascular Exam: regular rate/rhythm, normal heart sounds Gastrointestinal/Abdomen Exam: soft, normal bowel sounds Male Genitalia Exam: deferred Rectal Exam: deferred Back Exam: normal inspection Extremity Exam: normal inspection Skin Exam: pale Final Diagnosis/Problem List - Final Discharge Diagnosis/Problem (1) Pneumonia Current Visit: Yes Status: Acute Code(s): J18.9 - PNEUMONIA, UNSPECIFIED ORGANISM (2) COVID-19 virus infection Current Visit: Yes Status: Acute Code(s): U07.1 - COVID-19 (3) Hypoxia Current Visit: Yes Status: Acute Code(s): R09.02 - HYPOXEMIA (4) BPH (benign prostatic hyperplasia) Current Visit: Yes Status: Acute Code(s): N40.0 - BENIGN PROSTATIC HYPERPLASIA WITHOUT LOWER URINRY TRACT SYMP - [facility] Condition: Fair Prescriptions: New RX: Dexamethasone Sod Phosphate [Decadron 10Mg Inj.] 6 mg IV DAILY RX: Albuterol/Ipratropium 3ml Neb* [DUONEB 0.5-3 MG/3 ml Neb] 3 ml IH Q 4HPRN PRN PRN Reason: Shortness Of Breath/Wheezing RX: Enoxaparin Sodium [Enoxaparin Sodium] 90 mg SQ Q12HT RX: Guaifenesin 600 mg ER [Mucinex 600MG ER Tabs] 600 mg PO BID tablet RX: Remdesivir 100 mg IV DAILY RX: Ceftriaxone 1 GM/50 ML PREMIX* [ROCEPHIN 1 Gm-D5w 50 ml Bag] 1 g IV Q24H10 iv piggy RX: Doxycycline Hyclate 100 mg [Vibramycin 100 MG] 100 mg PO BIDWMEALS tablet Continue RX: Tamsulosin HCl 0.4 mg [Flomax 0.4 MG] 0.4 mg PO HS Discontinued RX: Albuterol 2.5 mg/3 ml Neb [Proventil 2.5 mg/3 ml Neb] 1 neb IH BID Follow up with: KAILEY DOBSON [ACTIVE STAFF] -
[2023-06-14 11:18] VITALS: BP 127/71; RESP 23; TEMP 97.2
[2023-06-14 12:12] VITALS: PULSE 71; O2SAT 92
[2023-06-15] MEDS ORDERED: REMDESIVIR 100 MG in Sodium Chloride 100ML MINI-BAG PLUS 100 ML IV SCH (10:00)
== END 2023-06-14 12:47 | disposition short-term general hospital (02) ==
LOC: ED 10:48 → MED SURG 15:05
PROVIDERS: ADMIT Internal Medicine; ATTEND Internal Medicine
DX: J18.9 Pneumonia, unspecified organism (principal); U07.1 COVID-19; R09.02 Hypoxemia; N40.0 Benign prostatic hyperplasia without lower urinary tract symptoms; J44.9 Chronic obstructive pulmonary disease, unspecified; Z79.899 Other long term (current) drug therapy; Z20.828 Contact with and (suspected) exposure to other viral communicable diseases
CPT/HCPCS: 0241U; 36000; 36415; 71045; 71260; 80053; 83605; 83880; 84484; 85025; 85379; 87040; 93005; 94640; 94760; 94762; 96360; 96365; 96374; 99284; 99291; Q3014; J0248; J0696; J1100; J1200; J1650; J2930; A9270-GY